=== PATIENT | female | born 1950 | race African-American/Black ===

== ENCOUNTER 2017-10-23 10:47 | Emergency (ER) | payer MEDICARE ==
[2017-10-23] MEDS ORDERED: Morphine 4 MG/ML Carpuject ONE (11:37)
== END 2017-10-23 12:21 | disposition home or self-care (01) ==
LOC: BURERS 10:47
DX: M54.41 Lumbago with sciatica, right side (principal); I10 Essential (primary) hypertension; M06.9 Rheumatoid arthritis, unspecified; Z79.899 Other long term (current) drug therapy; Z79.82 Long term (current) use of aspirin
CPT/HCPCS: 96372; J2270

== ENCOUNTER 2017-10-24 10:31 | Emergency (ER) | payer MEDICARE ==
[2017-10-24] MEDS ORDERED: HYDROcodone/Acetaminophen 10/325 mg Tablet ONE (10:59)
[2017-10-24] MEDS ORDERED: Ketorolac Tromethamine 30 MG/ML VIAL ONE (11:15)
== END 2017-10-24 11:10 | disposition home or self-care (01) ==
LOC: BURERS 10:31
DX: M06.9 Rheumatoid arthritis, unspecified (principal); I10 Essential (primary) hypertension; F17.210 Nicotine dependence, cigarettes, uncomplicated; Z79.899 Other long term (current) drug therapy; Z79.82 Long term (current) use of aspirin
CPT/HCPCS: 96372; J1885